=== PATIENT | female | born 2005 | race Caucasian/White ===

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

== ENCOUNTER 2023-09-04 13:35 | Outpatient (CLI) | payer MEDICAID | END 2023-09-04 23:59 | disposition home or self-care (01) | LOC: RAD 13:35 | PROVIDERS: ATTEND Physician Assistant | DX: M41.86 Other forms of scoliosis, lumbar region (principal); R10.9 Unspecified abdominal pain | CPT/HCPCS: 72074; 76705 ==